=== PATIENT | female | born 1975 | race African-American/Black ===

== ENCOUNTER 2024-05-18 10:52 | Observation (INO) ==
[2024-05-18] MEDS: METHYLPREDNISOLONE SOD SUCC/PF 125 MG/2 ML VIAL IVP ONE (11:15)
--- NOTE | 2024-05-18 11:16 | Emergency Department Note ---
HPI - General Adult General Chief complaint: SOB -Shortness of Breath Stated complaint: sob, chest pain Time Seen by Provider: 05/18/24 11:05 Source: patient Mode of arrival: walk-in Limitations: no limitations History of Present Illness HPI narrative: This is a 48 year old female patient that presents to the ER with c/o substernal chest pressure, cough, wheezing and SOB for few days. Patient has a hx of asthma and has been exposed to the flu. Patient denies any fever, chills, abdominal pain, back pain, nasal congestion or N/v/D Onset (ago): day(s) (3) Location: Reports chest Radiation: Reports non-radiation Severity: mild Quality: Reports dull Pain Consistency: Reports constant Relieving factors: Reports none Associated symptoms: Reports chest pain, cough and shortness of breath Treatments prior to arrival: Reports none Related Data Previous Rx's Medication Instructions Recorded albuterol sulfate 2.5 mg/0.5 mL 2.5 mg (0.5 mL) inhalation Q20M 01/07/24 solution for nebulization wheezing #30 ea methylprednisolone 4 mg tablets in See Rx Instructions PO .COMPLEX 01/07/24 a dose pack (Medrol (Jayson)) bronchitis #21 ea Allergies Allergy/AdvReac Type Severity Reaction Status Date / Time No Known Drug Allergies Allergy Verified 01/07/24 14:52 Review of Systems Status of ROS 10 or more systems reviewed and unremark able except as noted in history and below Constitutional Reports: fever, chills, change in weight, fatigue, malaise, night sweats and change in sleep pattern Eyes Reports: change in vision, blurry vision, blind spots and light sensit ivity Ears, nose, mouth, and throat Reports: throat pain, neck pain, throat swelling, difficulty swallowing, hoarseness and mouth pain Cardiovascular Reports: chest pain and shortness of breath with exertion; Denies: palpitations, edema, swelling of feet/ankles, lightheadedness or shortness of breath when lying down Respiratory Reports: shortness of breath, cough, wheezing, pain on inspiration and chest congestion; Denies: stridor, change in phlegm color or coughing up blood Gastrointestinal Denies: abdominal pain, nausea, vomiting, coffee grounds in vomit, heartburn, diarrhea or constipation Genitourinary Denies: painful urination, urinary frequency, urinary urgency, urinary incontinence or blood in urine Musculoskeletal Denies: back pain, neck pain, extremity pain, extremity swelling, joint pain, limited range of motion or joint swelling Integumentary/Breast Denies: rash, itching, redness, skin pain, skin tenderness, skin swelling, sores or new lesion Neurological Denies: headache, numbness in extremities, weakness in extremities, lack of coordination, dizziness or vertigo Psychiatric Denies: anxiety, mood swings, panic attacks, change in sleep pattern, hopelessness or loss of interest Endocrine Denies: excessive urination, excessive thirst, fatigue, cold intolerance or excessive sweating Hematologic/Lymphatic Denies: easy bruising or enlarged lymph nodes Allergic/Immunologic Denies: hives, throat swelling, tongue swelling, facial swelling, wheezing or itchy eyes PFSH PFSH Medical History (Updated 05/18/24 @ 11:17 by Shoshana High RN) Asthma Patient denies medical problems Surgical History (Updated 05/18/24 @ 11:17 by Shoshana High RN) Previous section Hx of cholecystectomy Social History Smoking status: never smoker What is your current living situation: I presently have a place to live Exam Constitutional: normal general appearance and no apparent distress Vital Signs - 24 hr 05/18/24 11:09 05/18/24 11:26 Temperature 97.4 F L Pulse Rate 84 Respiratory Rate 22 Blood Pressure 145/103 Pulse Oximetry 99 98 Oxygen Delivery Me thod Room Air HENMT: normocephalic, head/scalp atraumatic, hearing grossly normal bilaterally, external ears normal, EACs normal, nasal mucous membranes normal, external nose normal, oral mucous membranes normal and oropharynx normal Eyes: PERRL, EOMs intact bilaterally, conjunctivae normal and no scleral icterus Neck/C-Spine: visual inspection normal and trachea midline Lymph: no lymphadenopathy noted Chest: inspection of chest normal and palpation of chest normal Respiratory: breath sounds equal bilaterally, normal respiratory effort, auscultation abnormal (diminished breath sound), wheezing noted (scattered wheezes), no rales, no retractions and no use of accessory muscles Cardiovascular: normal heart rate noted, regular rhythm noted, no gallop, no rub, no murmur, no JVD, no clicks, peripheral pulses 2+ throughout and no additional abnormal heart sounds Gastrointestinal: abdomen normal to inspection, abdomen soft to palpation, nontender to palpation, nontender to percussion, nondistended, normoactive bowel sounds, no hepatosplenomegaly, no masses, no pulsatile mass, no ascites and no hernia Genitourinary: no CVA tenderness Back/Pelvis: spine normal to inspection Extremities: normal to inspection, normal to palpation, no tenderness, full ROM, no joint enlargement and no deformity Neurology: no movement abnormality noted, no focal motor deficit noted, no sensory deficits noted, gait normal, speech normal, coordination normal, no pronator drift noted, no fasciculations noted and GCS normal Psychiatry: mental status grossly normal, oriented x3, thought process normal, cooperative and affect normal Skin: skin color normal Course Course Hospital Course: 1155: Due to patient risk factors, medical history and ongoing chest pain will admit patient to the hospital for further evaluation and treatment. VSS, LS improved after meds and nebs, no s/s of acute distress noted Vital Signs Vital signs: Vital Signs Temperature 97.4 F L 05/18/24 11:09 Pulse Rate 84 05/18/24 11:09 Respiratory Rate 22 05/18/24 11:09 Blood Pressure 145/103 05/18/24 11:09 Pulse Oximetry 99 05/18/24 11:09 Oxygen Delivery Method Room Air 05/18/24 11:09 Temperature 97.4 F L 05/18/24 11:09 Pulse Rate 84 05/18/24 11:09 Respiratory Rate 22 05/18/24 11:09 Blood Pressure 145/103 05/18/24 11:09 Pulse Oximetry 98 05/18/24 11:26 Oxygen Delivery Method Room Air 05/18/24 11:09 Medical Decision Making Differential Diagnosis Differential Diagnosis: viral illness Medical Records Medical records reviewed: Yes I reviewed the patient's medical records Lab Data Lab results reviewed: Yes I reviewed the patient's lab results Labs: Lab Results 05/18/24 Range/Units 11:20 WBC 10.1 H (4.3-9.3) K/uL RBC 4.6 (4.00-5.50) M/uL Hgb 12.2 L (12.5-15.8) gm/dL Hct 37.5 (35.9-46.7) % MCV 81.1 (81.0-93.7) fl MCH 26.5 L (27.6-32.2) pg MCHC 32.6 L (33.1-35.3) g/dl RDW 15.0 H (11.4-14.2) % Plt Count 307 (152-353) K/uL MPV 7.6 (6.9-10.8) fl Gran % 59.0 (47.8-71.3) % Lymph % (Auto) 25.4 (20.0-43.0) % [place] % (Auto) 7.7 (3.6-9.8) % Eos % (Auto) 7.3 H (0.4-2.8) % Baso % (Auto) 0.6 (0.1-0.85) Lymph # (Auto) 2.6 (1.1-3.1) [place] # (Auto) 0.8 L (1.1-3.1) Eos # (Auto) 0.7 H (0.0-0.2) Baso # (Auto) 0.1 (0.0-0.1) Absolute Gran (auto) 6.0 (2.3-6.0) D-Dimer 170 (100-600) ng/mL Sodium 137 (136-145) mmol/L Potassium 3.6 (3.6-5.2) mmol/L Chloride 102.0 (98-107) mmol/L Carbon Dioxide 29 (21-32) mmol/L Anion Gap 6.0 (4-14) mEq/L BUN 6 L (7-18) mg/dL Creatinine 0.8 (0.6-1.3) mg/dL Estimated GFR 91.4 (>59.9) Glucose 87 (70-110) mg/dL Calcium 8.8 (8.5-10.1) mg/dL Total Bilirubin 0.13 (0.0-1.0) mg/dL AST 12 L (15-37) U/L ALT 24 L (30-65) U/L Alkaline Phosphatase 77 (50-136) U/L Troponin I High Sens 33.30 (4.0-60.4) ng/L Total Protein 7.4 (6.4-8.2) g/dL Albumin 3.3 L (3.4-5.0) g/dL COVID-19 (TIMA) Not detected (Not Detectd) Influenza Type A Ag Negative (Negative) Influenza Type B Ag Negative (Negative) Respiratory Virus Ag Negative (Negative) Imaging Data Chest x-ray: Attestation: I have reviewed the pertinent imaging results. ECG Data Attestation: I have reviewed the pertinent ECG results. Discharge Plan Discharge Patient Disposition: Admitted As Observation Condition: Stable Chief Complaint: SOB -Shortness of Breath Clinical Impression: Chest pain, Asthma exacerbation Prescriptions: No Action methylprednisolone [Medrol (Jayson)] 4 mg tablets,dose pack See Rx Instructions .ROUTE .COMPLEX Qty: 21 0RF Rx Instructions: orally per package directions albuterol sulfate 2.5 mg/0.5 mL solution for nebulization 2.5 mg inhalation Q20M Qty: 30 0RF Rx Instructions: for up to 3 doses Print Language: Cuban Referrals: Provider,NO PCP [Primary Care Provider] - Time of Disposition: 11:59
[2024-05-18] MEDS: IPRATROPIUM/ALBUTEROL SULFATE 3 ML AMPUL.NEB INH ONE (11:25)
[2024-05-18] MEDS: BUDESONIDE 0.5 MG/2 ML AMPUL.NEB INH ONE (11:25)
[2024-05-18 11:31] LABS: Basophils #(Absolute) Auto 0.1 (0.0-0.1); Basophils%(Percent) Auto 0.6 (0.1-0.85); Eosinophils#(Absolute)Auto 0.7 (0.0-0.2); Eosinophils%(Percent) Auto 7.3 % (0.4-2.8); Hematocrit 37.5 % (35.9-46.7); Mean Corpuscular Volume 81.1 fl (81.0-93.7); Monocytes #(Absolute)- Auto 0.8 (1.1-3.1); Monocytes %(Percent)- Auto 7.7 % (3.6-9.8); Platelet Count 307 K/uL (152-353); White Blood Count 10.1 K/uL (4.3-9.3)
[2024-05-18 11:34] LABS: Potassium 3.6 mmol/L (3.6-5.2)
[2024-05-18] MEDS ORDERED: ASPIRIN 81 MG TAB.CHEW ONE (12:10)
[2024-05-18] MEDS ORDERED: NITROGLYCERIN 1 GM OINT...G. TD ONE (12:10)
[2024-05-18] MEDS: ASPIRIN 81 MG TAB.CHEW PO ONE (12:10)
[2024-05-18] MEDS: NITROGLYCERIN 1 GM OINT...G. TD ONE (12:11)
[2024-05-18] MEDS: IPRATROPIUM/ALBUTEROL SULFATE 3 ML AMPUL.NEB INH SCH (14:55)
[2024-05-18] MEDS ORDERED: MORPHINE SULFATE 2 MG/ML CARTRIDGE IV PRN (15:00)
[2024-05-18] MEDS: KETOROLAC 30 MG/ML INJ VIAL IVP SCH (15:41)
[2024-05-18] MEDS: LOSARTAN POTASSIUM 50 MG TABLET PO SCH (16:34)
[2024-05-18] MEDS: AZITHROMYCIN 500 MG 500 MG in 0.9 % SODIUM CHLORIDE 250 ML IV SCH (16:34)
[2024-05-18] MEDS: ENOXAPARIN SODIUM 80 MG/0.8 ML SYRINGE SUBQ SCH (16:37)
--- NOTE | 2024-05-18 17:56 | History & Physical Report ---
H&P: HPI History of Present Illness Chief complaint: CHEST PAIN, ASTHMA W/ ACUTE EXACERBATION Narrative: This is a 48 year old female patient that presents to the ER with c/o substernal chest pressure, cough, wheezing and SOB for few days. Patient has a hx of asthma and has been exposed to the flu. Patient denies any fever, chills, abdominal pain, back pain, nasal congestion or N/v/D. Admitted patient to med/surg for further observation and treatment. Day one of hospital stay, patient is short of breath with shallow breathing, and complains of chest pressure. Scattered wheezing with diminished breath sounds at bases was observed. Patient was placed on a court monitor upon arriving to the med/surg floor. Antibiotics, breathing treatments, and home medications were started. Review of Systems Status of ROS 10 or more systems reviewed and unremark able except as noted in history and below Constitutional Reports: fever, chills, change in weight, malaise, night sweats and change in sleep pattern; Denies: fatigue Eyes Reports: change in vision, blurry vision, blind spots and light sensitivity Ears, nose, mouth, and throat Reports: throat pain, difficulty swallowing, hoarseness and mouth pain; Denies: neck pain, throat swelling or vertigo Cardiovascular Reports: chest pain and shortness of breath with exertion; Denies: palpitations, edema, swelling of feet/ankles, lightheadedness or shortness of breath when lying down Respiratory Reports: shortness of breath, cough, pain on inspiration and chest congestion; Denies: wheezing, stridor, change in phlegm color or coughing up blood Gastrointestinal Reports: difficulty swallowing; Denies: abdominal pain, nausea, vomiting, coffee grounds in vomit, heartburn, diarrhea or constipation Genitourinary Denies: painful urination, urinary frequency, urinary urgency, ur inary incontinence or blood in urine Musculoskeletal Denies: back pain, neck pain, extremity pain, extremity swelling, joint pain, limited range of motion or joint swelling Integumentary/Breast Denies: rash, itching, redness, skin pain, skin tenderness, skin swelling, sores or new lesion Neurological Denies: headache, numbness in extremities, weakness in extremities, lack of coordination, dizziness or vertigo Psychiatric Denies: anxiety, mood swings, panic attacks, change in sleep pattern, hopelessness or loss of interest Endocrine Denies: excessive urination, excessive thirst, fatigue, cold intolerance or excessive sweating Hematologic/Lymphatic Denies: easy bruising or enlarged lymph nodes Allergic/Immunologic Denies: hives, throat swelling, tongue swelling, facial swelling, wheezing or itchy eyes PFSH PFSH Medical History Hypertension Anemia Morbid obesity Asthma Surgical History Previous section Hx of cholecystectomy Social History Smoking status: never smoker What is your current living situation: I presently have a place to live Problems where you live: no known problems Highest level of school completed/degree received: high school Meds Home Medications and Allergies Home Medications Medication Instructions Recorded Confirmed Type albuterol sulfate 90 mcg/actuation 2 inh inhalation Q6H PRN shortness 05/18/24 05/18/24 History aerosol inhaler of breath or wheezing ascorbic acid (vitamin C) 500 mg 500 mg PO DAILY 05/18/24 05/18/24 History tablet (Soothing PureWay-C) azelastine 137 mcg (0.1 %) nasal 2 spray intranasal BID 05/18/24 05/18/24 History spray cetirizine 10 mg tablet 10 mg PO DAILY 05/18/24 05/18/24 History cholecalciferol (vitamin D3) 25 1,000 unit PO DAILY 05/18/24 05/18/24 History mcg (1,000 unit) tablet diphenhydramine HCl 12.5 mg/5 mL 37.5 mg PO BID PRN HIVES 05/18/24 05/18/24 History oral liquid (Allergy) epinephrine 0.3 mg/0.3 mL 0.3 mg IM Q10M PRN anaphylaxis 05/18/24 05/18/24 History injection, auto-injector (EpiPen 2-Jayson) fluticasone propionate 50 2 spray intranasal DAILY 05/18/24 05/18/24 History mcg/actuation nasal spray,suspension (24 Hour Allergy Relief) hydrochlorothiazide 25 mg tablet 12.5 mg PO DAILY 05/18/24 05/18/24 History montelukast 10 mg tablet 10 mg PO DAILY 05/18/24 05/18/24 History tiotropium bromide 2.5 2 inh inhalation DAILY 05/18/24 05/18/24 History mcg/actuation mist for inhalation (Spiriva Respimat) Allergies Allergy/AdvReac Type Severity Reaction Status Date / Time No Known Drug Allergies Allergy Verified 01/07/24 14:52 Exam Exam: Patient in smith's position upon entering room for exam. Constitutional: normal general appearance, distress noted (mild) and (respiratory), abnormal body habitus (obese), no limitations and alert Vital Signs - 24 hr 05/18/24 11:09 05/18/24 11:26 05/18/24 11:30 Temperature 97.4 F L Pulse Rate 84 74 Pulse Rate [Left B rachial] Respiratory Rate 22 20 Blood Pressure 145/103 153/91 Blood Pressure [Le ft Arm] Pulse Oximetry 99 98 [facility] Room Air 05/18/24 12:00 05/18/24 12:11 05/18/24 12:20 Temperature Pulse Rate 79 82 Pulse Rate [Left B rachial] Respiratory Rate 20 20 Blood Pressure 146/87 189/82 156/98 Blood Pressure [Le ft Arm] Pulse Oximetry 99 99 [facility] Room Air 05/18/24 12:30 05/18/24 12:35 05/18/24 12:49 Temperature Pulse Rate 83 90 90 Pulse Rate [Left B rachial] Respiratory Rate 20 20 20 Blood Pressure 156/88 124/81 124/81 Blood Pressure [Le ft Arm] Pulse Oximetry 99 99 99 [facility] Room Air Room Air 05/18/24 14:18 05/18/24 14:28 05/18/24 15:11 Temperature 97.7 F Pulse Rate Pulse Rate [Left B rachial] 83 Respiratory Rate 20 Blood Pressure 170/82 Blood Pressure [Le ft Arm] 170/82 Pulse Oximetry 98 [facility] Room Air HENMT: normocephalic, head/scalp atraumatic, hearing grossly normal bilaterally, external ears normal, EACs normal, nasal mucous membranes normal, external nose normal, oral mucous membranes normal and oropharynx normal Eyes: PERRL, EOMs intact bilaterally, conjunctivae normal and no scleral icterus Neck/C-Spine: visual inspection normal and trachea midline Lymph: no lymphadenopathy noted Chest: inspection of chest normal and palpation of chest normal Respiratory: breath sounds equal bilaterally, normal respiratory effort, auscultation abnormal (diminished breath sound), wheezing noted (scattered wheezes), no rales, no retractions and no use of accessory muscles Cardiovascular: normal heart rate noted, regular rhythm noted, no gallop, no rub, no murmur, no JVD, no clicks, peripheral pulses 2+ throughout and no additional abnormal heart sounds Gastrointestinal: abdomen normal to inspection, abdomen soft to palpation, nontender to palpation, nontender to percussion, nondistended, normoactive bowel sounds, no hepatosplenomegaly, no masses, no pulsatile mass, no ascites and no hernia Genitourinary: no CVA tenderness Back/Pelvis: spine normal to inspection Extremities: normal to inspection, normal to palpation, no tenderness, full ROM, no joint enlargement and no deformity Neurology: no movement abnormality noted, no focal motor deficit noted, no s ensory deficits noted, gait normal, speech normal, coordination normal, no pronator drift noted, no fasciculations noted and GCS normal Psychiatry: mental status grossly normal, oriented x3, thought process normal, cooperative and affect normal Skin: skin color normal Assessment and Plan Assessment and Plan (1) Asthma exacerbation: Qualifiers: Asthma persistence: persistent Asthma severity: mild Qualified Code(s): J45.31 - Mild persistent asthma with (acute) exacerbation Code(s): J45.901 - Unspecified asthma with (acute) exacerbation (2) Chest pain at rest: Code(s): R07.9 - Chest pain, unspecified (3) SOB (shortness of breath): Code(s): R06.02 - Shortness of breath (4) Hypertension: Qualifiers: Hypertension type: primary hypertension Qualified Code(s): I10 - Essential (primary) hypertension Code(s): I10 - Essential (primary) hypertension (5) Anemia: Assessment and Plan: iron studies pending Qualifiers: Anemia type: unspecified type Qualified Code(s): D64.9 - Anemia, unspecified Code(s): D64.9 - Anemia, unspecified (6) Morbid obesity: Code(s): E66.01 - Morbid (severe) obesity due to excess calories (7) Hypoalbuminemia: Code(s): E88.09 - Other disorders of plasma-protein metabolism, not elsewhere classified Plan Aspirin 324 mg PO DAILY Albuterol Sulfate 3 ml INH RQ4 Methylprednisolone Sodium Succinate 40 mg INJ Q12H Nitroglycerin 1 gm TD 1300, 1900 Azithromycin 500 mg in Sodium Chloride 250 mls @ 250 mls/hr IV DAILY Budesonide 0.5 mg INH RBID Ketorolac Tromethamine 30 mg IVP Q8H Metoprolol Tartrate 25 mg PO BID Losartan Potassium 100 mg PO DAILY Pantoprazole Sodium 40 mg PO BID Enoxaparin Sodium 80 mg SUBQ Q12H Morphine Sulfate 2 mg IV Q4H PRN Acetaminophen 1,000 mg PO Q6H PRN hydration cardiac monitoring continuous pulse ox solumedrol IV trop every 6 hours EKG on admit and prn Results Labs Labs: CBC WBC 10.1 K/uL (4.3-9.3) H 05/18/24 11:20 RBC 4.6 M/uL (4.00-5.50) 05/18/24 11:20 Hgb 12.2 gm/dL (12.5-15.8) L 05/18/24 11:20 Hct 37.5 % (35.9-46.7) 05/18/24 11:20 MCV 81.1 fl (81.0-93.7) 05/18/24 11:20 MCH 26.5 pg (27.6-32.2) L 05/18/24 11:20 MCHC 32.6 g/dl (33.1-35.3) L 05/18/24 11:20 RDW 15.0 % (11.4-14.2) H 05/18/24 11:20 Plt Count 307 K/uL (152-353) 05/18/24 11:20 MPV 7.6 fl (6.9-10.8) 05/18/24 11:20 Gran % 59.0 % (47.8-71.3) 05/18/24 11:20 Lymph % (Auto) 25.4 % (20.0-43.0) 05/18/24 11:20 [place] % (Auto) 7.7 % (3.6-9.8) 05/18/24 11:20 Eos % (Auto) 7.3 % (0.4-2.8) H 05/18/24 11:20 Baso % (Auto) 0.6 (0.1-0.85) 05/18/24 11:20 Lymph # (Auto) 2.6 (1.1-3.1) 05/18/24 11:20 [place] # (Auto) 0.8 (1.1-3.1) L 05/18/24 11:20 Eos # (Auto) 0.7 (0.0-0.2) H 05/18/24 11:20 Baso # (Auto) 0.1 (0.0-0.1) 05/18/24 11:20 Absolute Gran (auto) 6.0 (2.3-6.0) 05/18/24 11:20 BMP Sodium 137 mmol/L (136-145) 05/18/24 11:20 Potassium 3.6 mmol/L (3.6-5.2) 05/18/24 11:20 Chloride 102.0 mmol/L (98-107) 05/18/24 11:20 Carbon Dioxide 29 mmol/L (21-32) 05/18/24 11:20 Anion Gap 6.0 mEq/L (4-14) 05/18/24 11:20 BUN 6 mg/dL (7-18) L 05/18/24 11:20 Creatinine 0.8 mg/dL (0.6-1.3) 05/18/24 11:20 Estimated GFR 91.4 (>59.9) 05/18/24 11:20 Glucose 87 mg/dL (70-110) 05/18/24 11:20 Calcium 8.8 mg/dL (8.5-10.1) 05/18/24 11:20 Total Bilirubin 0.13 mg/dL (0.0-1.0) 05/18/24 11:20 AST 12 U/L (15-37) L 05/18/24 11:20 ALT 24 U/L (30-65) L 05/18/24 11:20 Alkaline Phosphatase 77 U/L (50-136) 05/18/24 11:20 Total Protein 7.4 g/dL (6.4-8.2) 05/18/24 11:20 Albumin 3.3 g/dL (3.4-5.0) L 05/18/24 11:20 Cardiac Enzymes Troponin I High Sens 33.30 ng/L (4.0-60.4) 05/18/24 11:20 Liver Function Total Bilirubin 0.13 mg/dL (0.0-1.0) 05/18/24 11:20 AST 12 U/L (15-37) L 05/18/24 11:20 ALT 24 U/L (30-65) L 05/18/24 11:20 Alkaline Phosphatase 77 U/L (50-136) 05/18/24 11:20 Total Protein 7.4 g/dL (6.4-8.2) 05/18/24 11:20 Albumin 3.3 g/dL (3.4-5.0) L 05/18/24 11:20 Imaging Imaging ordered: Chest x-ray Radiologist's impression: XR CHEST 1V Date of Service: 05/18/24 HISTORY: painpain; COMPARISON: Prior study or studies were utilized for comparison during interpretation with the most relevant dated 01/07/2024 TECHNIQUE: XR CHEST 1V FINDINGS: Chest: Lines and tubes: None Mediastinum: Cardiac and mediastinal shadow is within normal limits for size and contour. Pulmonary vessels: No pulmonary vascular congestion. Lung smiley: No suspicious airspace opacity. Pleura: No effusion. No pneumothorax. Bones and soft tissues: No acute osseous or soft tissue abnormality. IMPRESSION: 1. No acute cardiopulmonary abnormality
[2024-05-18] MEDS: BUDESONIDE 0.5 MG/2 ML AMPUL.NEB INH SCH (20:46)
[2024-05-18] MEDS: NITROGLYCERIN 1 GM OINT...G. TD SCH ×2 (21:57→22:00)
[2024-05-18] MEDS: PANTOPRAZOLE SODIUM 40 MG TABLET.DR PO SCH (21:59)
[2024-05-18] MEDS: ACETAMINOPHEN 500 MG TABLET PO PRN (21:59)
[2024-05-18] MEDS: METOPROLOL TARTRATE 50 MG TABLET PO SCH (21:59)
[2024-05-18] MEDS: METHYLPREDNISOLONE SOD SUCC/PF 40 MG/ML VIAL INJ SCH (23:21)
[2024-05-19 04:23] VITALS: RESP 19
[2024-05-19 04:48] LABS: Potassium 4.1 mmol/L (3.6-5.2)
[2024-05-19 05:05] LABS: INR 1.03
[2024-05-19 05:52] LABS: Basophils%(Percent) Auto 0.1 (0.1-0.85); Granulocytes % - Auto 87.9 % (47.8-71.3); Granulocytes#(Absolute)- Auto 12.9 (2.3-6.0); Hematocrit 35.9 % (35.9-46.7); Mean Corpuscular Volume 80.7 fl (81.0-93.7); Monocytes #(Absolute)- Auto 0.3 (1.1-3.1); Monocytes %(Percent)- Auto 1.8 % (3.6-9.8); Platelet Count 328 K/uL (152-353); White Blood Count 14.7 K/uL (4.3-9.3)
[2024-05-19] MEDS: ASPIRIN 81 MG TAB.CHEW PO SCH (09:39)
[2024-05-19 12:41] VITALS: BP 132/69; PULSE 70; TEMP 98.7
--- NOTE | 2024-05-19 15:05 | Discharge Summary ---
DS: Providers Provider Date of admission: 05/18/24 12:11 Primary care physician: NO PCP Provider Admitting clinician: Nora Grant Attending physician on admission: Ute Santamaria Attending physician on discharge: Ute Santamaria Discharging clinician: Ute Santamaria Anticipated date of discharge: 05/19/24 DS: Diagnosis Discharge Diagnosis (1) Asthma exacerbation: Qualifiers: Asthma persistence: persistent Asthma severity: mild Qualified Code(s): J45.31 - Mild persistent asthma with (acute) exacerbation (2) Chest pain at rest: (3) SOB (shortness of breath): (4) Hypertension: Qualifiers: Hypertension type: primary hypertension Qualified Code(s): I10 - Essential (primary) hypertension (5) Anemia: Qualifiers: Anemia type: unspecified type Qualified Code(s): D64.9 - Anemia, unspecified (6) Morbid obesity: (7) Hypoalbuminemia: Plan Discharge home for self care. DS: Summary Hospital Course Hospital Course: This is a 48 year old female patient that presents to the ER with c/o substernal chest pressure, cough, wheezing and SOB for few days. Patient has a hx of asthma and has been exposed to the flu. Patient denies any fever, chills, abdominal pain, back pain, nasal congestion or N/v/D. Admitted patient to med/surg for further observation and treatment. Day one of hospital stay, patient is short of breath with shallow breathing, and complains of chest pressure. Scattered wheezing with diminished breath sounds at bases was observed. Patient was placed on a school lunch monitor upon arriving to the med/surg floor. Antibiotics, breathing treatments, and home medications were started. Day two of hospital stay, patient symptoms have improved and no longer feeling chest pressure at this time. Breath sounds have improved, no wheezing and air movement has improved throughout since previous day. Patient states she only feels short of breath around time for her next breathing treatment. Provider recommends she continue breathing treatment at home every 4 hours. Patient is ready for discharge home for self care at this time. Follow up with PCP in 5-7 days of discharge. Status at Discharge Functional status at discharge: independent ambulation Overall status at discharge: patient is progressing back to baseline Time Spent with Patient Time attestation: Total time spent providing and/or coordinating discharge services: Time spent: greater than 30 minutes Exam Exam: Patient in smith's position upon entering room for exam. Constitutional: normal general appearance, distress noted (mild) and (respiratory), abnormal body habitus (obese), no limitations and alert Vital Signs - 24 hr 05/18/24 12:00 05/18/24 12:11 05/18/24 12:20 Temperature Pulse Rate 79 82 Pulse Rate [Left B rachial] Respiratory Rate 20 20 Blood Pressure 146/87 189/82 156/98 Blood Pressure [Le ft Arm] Pulse Oximetry 99 99 Oxygen Delivery [facility] Room Air Room Air 05/18/24 12:30 05/18/24 12:35 05/18/24 12:49 Temperature Pulse Rate 83 90 90 Pulse Rate [Left B rachial] Respiratory Rate 20 20 20 Blood Pressure 156/88 124/81 124/81 Blood Pressure [Le ft Arm] Pulse Oximetry 99 99 99 Oxygen Delivery [facility] Room Air Room Air 05/18/24 14:18 05/18/24 14:28 05/18/24 15:11 Temperature 97.7 F Pulse Rate Pulse Rate [Left B rachial] 83 Respiratory Rate 20 Blood Pressure 170/82 Blood Pressure [Le ft Arm] 170/82 Pulse Oximetry 98 Oxygen Delivery [facility] Room Air Room Air 05/18/24 20:00 05/18/24 20:46 05/18/24 21:59 Temperature 97.5 F L Pulse Rate 92 H Pulse Rate [Left B rachial] 92 H Respiratory Rate 21 Blood Pressure 130/70 Blood Pressure [Le ft Arm] 130/70 Pulse Oximetry 96 93 L Oxygen Delivery [facility] Room Air 05/18/24 22:00 05/19/24 00:00 05/19/24 01:36 Temperature 97.7 F Pulse Rate Pulse Rate [Left B rachial] 85 Respiratory Rate 18 Blood Pressure 130/70 194/81 Blood Pressure [Le ft Arm] 107/57 Pulse Oximetry 93 L Oxygen Delivery [facility] Room Air 05/19/24 04:00 05/19/24 08:00 05/19/24 08:49 Temperature 98.0 F 98.3 F Pulse Rate Pulse Rate [Left B rachial] 70 71 Respiratory Rate 19 19 Blood Pressure Blood Pressure [Le ft Arm] 116/57 136/66 Pulse Oximetry 96 95 99 Oxygen Delivery [facility] Room Air Room Air 05/19/24 11:32 Temperature Pulse Rate Pulse Rate [Left B rachial] Respiratory Rate Blood Pressure Blood Pressure [Le ft Arm] Pulse Oximetry 97 Oxygen Delivery [facility] HENMT: normocephalic, head/scalp atraumatic, hearing grossly normal bilaterally, external ears normal, EACs normal, nasal mucous membranes normal, external nose normal, oral mucous membranes normal and oropharynx normal Eyes: PERRL, EOMs intact bilaterally, conjunctivae normal and no scleral icterus Neck/C-Spine: visual inspection normal and trachea midline Lymph: no lymphadenopathy noted Chest: inspection of chest normal and palpation of chest normal Respiratory: breath sounds equal bilaterally, normal respiratory effort, auscultation abnormal (diminished breath sound), wheezing noted (scattered wheezes), no rales, no retractions and no use of accessory muscles Cardiovascular: normal heart rate noted, regular rhythm noted, no gallop, no rub, no murmur, no JVD, no clicks, peripheral pulses 2+ throughout and no additional abnormal heart sounds Gastrointestinal: abdomen normal to inspection, abdomen soft to palpation, nontender to palpation, nontender to percussion, nondistended, normoactive bowel sounds, no hepatosplenomegaly, no masses, no pulsatile mass, no ascites and no hernia Genitourinary: no CVA tenderness Back/Pelvis: spine normal to inspection Extremities: normal to inspection, normal to palpation, no tenderness, full ROM, no joint enlargement and no deformity Neurology: no movement abnormality noted, no focal motor deficit noted, no sensory deficits noted, gait normal, speech normal, coordination normal, no pronator drift noted, no fasciculations noted and GCS normal Psychiatry: mental status grossly normal, oriented x3, thought process normal, cooperative and affect normal Skin: skin color normal DS: Data Data Completed and Pending Labs on day of discharge: Labs from last 24 hours 05/19/24 05/18/24 05/18/24 04:10 23:00 17:17 WBC 14.7 H RBC 4.4 Hgb 11.8 L Hct 35.9 MCV 80.7 L MCH 26.5 L MCHC 32.8 L RDW 14.9 H Plt Count 328 MPV 8.6 Gran % 87.9 H Lymph % (Auto) 10.2 L Christian % (Auto) 1.8 L Eos % (Auto) 0.0 L Baso % (Auto) 0.1 Lymph # (Auto) 1.5 Christian # (Auto) 0.3 L Eos # (Auto) 0.0 Baso # (Auto) 0.0 Absolute Gran (auto) 12.9 H PT 14.0 PT Normal Control 13.7 INR 1.03 APTT 29.7 D-Dimer Sodium 134 L Potassium 4.1 Chloride 101.0 Carbon Dioxide 26 Anion Gap 7.0 BUN 11 Creatinine 0.8 Estimated GFR 91.4 Glucose 145 H Calcium 8.9 Total Bilirubin 0.16 AST 9 L ALT 21 L Alkaline Phosphatase 71 Troponin I High Sens 30.40 34.80 Total Protein 7.0 Albumin 2.9 L Urine Test COVID-19 (TIMA) 05/18/24 05/18/24 11:20 11:18 WBC RBC Hgb Hct MCV MCH MCHC RDW Plt Count MPV Gran % Lymph % (Auto) Christian % (Auto) Eos % (Auto) Baso % (Auto) Lymph # (Auto) Christian # (Auto) Eos # (Auto) Baso # (Auto) Absolute Gran (auto) PT PT Normal Control INR APTT D-Dimer 170 Sodium 137 Potassium 3.6 Chloride 102.0 Carbon Dioxide 29 Anion Gap 6.0 BUN 6 L Creatinine 0.8 Estimated GFR 91.4 Glucose 87 Calcium 8.8 Total Bilirubin 0.13 AST 12 L ALT 24 L Alkaline Phosphatase 77 Troponin I High Sens 33.30 Total Protein 7.4 Albumin 3.3 L Urine Test Negative COVID-19 (TIMA) Not detected Imaging Chest x-ray: Radiologist's impression: XR CHEST 1V Date of Service: 05/18/24 HISTORY: pain; COMPARISON: Prior study or studies were utilized for comparison during interpretation with the most relevant dated 01/07/2024 TECHNIQUE: XR CHEST 1V FINDINGS: Chest: Lines and tubes: None Mediastinum: Cardiac and mediastinal shadow is within normal limits for size and contour. Pulmonary vessels: No pulmonary vascular congestion. Lung smiley: No suspicious airspace opacity. Pleura: No effusion. No pneumothorax. Bones and soft tissues: No acute osseous or soft tissue abnormality. IMPRESSION: 1. No acute cardiopulmonary abnormality Discharge Plan Discharge Disposition: Home, Self-Care Condition: Improved Discharge Medications: New methylprednisolone [Medrol (Jayson)] 4 mg tablets,dose pack See Rx Instructions .ROUTE .COMPLEX Qty: 21 0RF Rx Instructions: for 6 days aspirin [Jose Chewable Aspirin] 81 mg Tablet,Chewable 81 mg PO ONCE Qty: 30 0RF metoprolol tartrate 50 mg Tablet 25 mg PO BID Qty: 30 0RF losartan 50 mg Tablet 100 mg PO DAILY Qty: 30 0RF famotidine [Pepcid] 40 mg tablet 40 mg PO BID Qty: 60 0RF Continued cetirizine 10 mg tablet 10 mg PO DAILY cholecalciferol (vitamin D3) 25 mcg (1,000 unit) tablet 1,000 unit PO DAILY montelukast 10 mg tablet 10 mg PO DAILY Spiriva Respimat 2.5 mcg/actuation mist 2 inh INHALATION DAILY albuterol sulfate 90 mcg/actuation HFA aerosol inhaler 2 inh inhalation Q6H PRN (Reason: shortness of breath or wheezing) fluticasone propionate [24 Hour Allergy Relief] 50 mcg/actuation spray,suspension 2 spray intranasal DAILY Rx Instructions: administer into each nostril ascorbic acid (vitamin C) [Soothing PureWay-C] 500 mg tablet 500 mg PO DAILY diphenhydramine HCl [Allergy] 12.5 mg/5 mL liquid 37.5 mg PO BID PRN (Reason: HIVES) azelastine 137 mcg (0.1 %) spray,non-aerosol 2 spray intranasal BID Rx Instructions: administer into each nostril epinephrine [EpiPen 2-Jayson] 0.3 mg/0.3 mL auto-injector 0.3 mg IM Q10M PRN (Reason: anaphylaxis) Rx Instructions: for 2 doses Discontinued hydrochlorothiazide 25 mg tablet 12.5 mg PO DAILY Discharge Orders: Discharge Order (Routine); Ordered 05/19/24 Ordered By: Ute Santamaria Activity: increase activity as tolerated Diet: low fat, low cholesterol Interventions: Discharge Assessment Last Done: 05/19/24 14:52 MED/SURG & ICU Observation Charge Sheet Last Done: 05/19/24 14:53 Patient Instructions: Chronic Hypertension (DC) Activity Restrictions/Additional Instructions: Work with PCP on safe weight loss and BP control through activity and exercise get list of local doctors and 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
== END 2024-05-19 14:53 | disposition home or self-care (01) ==
LOC: ED 10:52 → MS 10:52
PROVIDERS: ADMIT Nurse Practitioner Family; ATTEND Family Medicine